=== PATIENT | female | born 1940 | race Caucasian/White ===

== ENCOUNTER 2017-03-01 06:16 | Day surgery (SDC) | payer OTHER ==
[2017-02-25 17:29] VITALS: BMI 36.0
[2017-03-01] MEDS ORDERED: LIDOCAINE 1%/EPI 1:100000 (20 ML MULTI DOSE VIAL) ONE (07:25)
[2017-03-01] MEDS ORDERED: MICROFIBRILLAR COLLAGEN 1 GM EACH ONE (07:25)
--- NOTE | 2017-03-01 07:30 | HP ---
History & Physical Update - History History: No Change - Physical Physical: No Change - Assessment Assessment: No Change - Plan Plan: No Change
[2017-03-01] MEDS ORDERED: MIDAZOLAM HCL 2 MG/2 ML SINGLE DOSE VIAL ONE (07:43)
[2017-03-01] MEDS ORDERED: SUCCINYLCHOLINE CHLORIDE 200 MG/10 ML VIAL ONE (08:11)
[2017-03-01] MEDS ORDERED: LIDOCAINE HCL/PF 2% SDV 5ML VIAL ONE (08:11)
[2017-03-01] MEDS ORDERED: PROPOFOL 20 ML ONE (08:11)
[2017-03-01] MEDS ORDERED: DEXAMETHASONE SOD PHOSPHATE 4 MG/1 ML VIAL ONE ×2 (08:11→09:38)
[2017-03-01] MEDS ORDERED: ROCURONIUM BROMIDE 50 MG/5 ML VIAL ONE (08:12)
[2017-03-01] MEDS ORDERED: ePHEDrine SULFATE 50 MG/1 ML AMPULE ONE (08:36)
[2017-03-01] MEDS ORDERED: BUPIVACAINE HCL/PF 0.5% (5MG/ML) 10 ML VIAL ONE (08:39)
[2017-03-01] MEDS ORDERED: ceFAZolin SODIUM 1 GM VIAL ONE (08:50)
[2017-03-01] MEDS ORDERED: oxyCODONE HCL 5 MG TABLET PO PRN (10:11)
[2017-03-01] MEDS ORDERED: PROMETHAZINE HCL 25 MG/1 ML VIAL IVPUSH PRN (10:11)
[2017-03-01] MEDS ORDERED: LABETALOL HCL 5 MG/1 ML (100MG/20 ML VIAL) IVPUSH PRN (10:13)
[2017-03-01] MEDS ORDERED: LACTATED RINGERS SOLUTION 1,000 ML IV SCH ×2 (10:15→10:30)
[2017-03-01 13:10] VITALS: TEMP 98.6
[2017-03-01] MEDS ORDERED: oxyCODONE HCL 5 MG TABLET ONE (14:26)
[2017-03-01 16:30] VITALS: BP 160/90; PULSE 80
--- NOTE | 2017-03-01 20:01 | OP ---
DATE OF OPERATION: 03/01/2017 SURGICAL ATTENDING: Siva Vyas M.D. PHYSICIAN SAP BW DEVELOPER: Odette PREOPERATIVE DIAGNOSIS: Right thyroid mass. POSTOPERATIVE DIAGNOSIS: Right thyroid mass. ANESTHESIA: General endotracheal anesthesia. PROCEDURE: Right hemithyroidectomy. DESCRIPTION OF PROCEDURE: The patient was taken into the operating room, placed in the supine position, endotracheally intubated. Next ultrasound is performed showing a very large right thyroid mass and a very small left thyroid cyst. No adenopathy was seen. The neck was then prepped and draped in the usual sterile fashion. Local anesthesia was injected, and a 5-cm horizontal incision was made in the mid neck, and carried down through subcutaneous tissues and platysma. Subplatysmal flaps were raised superiorly and inferiorly, and flap hooks were placed for exposure. The was incised, and the right-sided strap muscles were elevated off the thyroid gland. The isthmus was transected as was the superior pole after the superior laryngeal nerve was identified, protected, and preserved. The recurrent laryngeal nerve was then identified, tested with the nerve miguelangel, and preserved. The posterior inferior and superior attachments were transected, and in this way the right thyroid lobe was removed and sent to pathology. A parathyroid gland was noticed to be intact, with good viability and color. The nerve monitor was used throughout, and the recurrent laryngeal nerve was found to be intact with a good signal at the conclusion of procedure. Hemostasis was achieved with electrocautery and . The Valsalva maneuver was performed, and no bleeding was seen. The wound was then closed in 3 layers. The sterile dressings were placed. The patient was then awakened, extubated, and taken to recovery in stable condition. Dr. Vyas, the attending surgeon, was present throughout the entire procedure. SIVA VYAS M.D. [id number]
--- NOTE | 2017-03-02 12:06 | PATH ---
Surgical Pathology Report Patient Name: SIDRA OBREGON [facility]. Rec. #: [id number] /Age/Gender: 1940 (Age: 76) / F Account: [id number] Location: [facility] SURGICAL Taken: 03/01/2017 Received: 03/01/2017 Reported: 03/02/2017 Physicians: Antonio Gooden M.D. Specimen(s) Received RIGHT THYROID LOBE Clinical History None Provided Final Diagnosis THYROID, RIGHT, LOBECTOMY: BENIGN ADENOMATOUS NODULE (NODULAR GOITER). Electronically Signed Eddy Fair M.D. Gross Description Received fresh labeled "right thyroid lobe," is an 85 g, 8.0 x 6.0 x 2.5 cm unoriented thyroid lobe. There is a bulging defect in the posterior aspect of the specimen. Sectioning reveals a 5.5 x 5.0 x 3.5 cm variegated nodule comprising the majority of the lobe. The nodule is 3 cm from the isthmus and 3 cm from the superior pole. Surgical Nurse sections are submitted in 10 cassettes. /03/01/2017 saudi03/01/2017
--- NOTE | 2017-03-02 16:49 | SURG ---
Surgery Anesthesiology Fellow Note Anesthesiology Fellow: Odette Jarrell PA-C Date of Service: 03/01/17 Diagnosis: Right Thyroid mass Procedure: Right hemithyroidectomy I was present for the entirety of the operative procedure. For further detail, please refer to operative report. Visit type - Case Type Case Type: Scheduled Admission - Emergency Emergency Visit: No - New patient This patient is new to me today: Yes Date on this admission: 03/02/17
== END 2017-03-01 16:41 | disposition home or self-care (01) ==
LOC: JASU-SURG 06:16
PROVIDERS: ATTEND Surgery
PROC: 0GTH0ZZ Resection of Right Thyroid Gland Lobe, Open Approach (ICD-10-PCS; principal; 2017-03-01 08:00)
DX: E04.1 Nontoxic single thyroid nodule (principal)
CPT/HCPCS: 88307-TC; 94760